=== PATIENT | female | born 1980 | race Caucasian/White ===

== ENCOUNTER 2022-10-22 20:44 | Emergency (ER) | payer BC, OTHER ==
[2022-10-22 21:01] VITALS: BP 120/69; PULSE 73; RESP 16; TEMP 98.6; BMI 26.6
[2022-10-22] MEDS ORDERED: KETOROLAC TROMETHAMINE 30 MG/1 ML VIAL IM ONE (21:07)
[2022-10-22] MEDS ORDERED: KETOROLAC TROMETHAMINE 30 MG/1 ML VIAL ONE (21:09)
[2022-10-22 21:50] LABS: EPITHELIAL CELLS FEW /hpf
== END 2022-10-22 23:05 | disposition home or self-care (01) ==
LOC: FER 20:44
PROC: 3E023GC Introduction of Other Therapeutic Substance into Muscle, Percutaneous Approach (ICD-10-PCS; principal; 2022-10-22)
DX: N39.0 Urinary tract infection, site not specified (principal); S56.911A Strain of unspecified muscles, fascia and tendons at forearm level, right arm, initial encounter; Y99.9 Unspecified external cause status
CPT/HCPCS: 81003; 81015; 93971; 99284-25